=== PATIENT | male | born 1955 | race Caucasian/White ===

== ENCOUNTER → 2023-06-16 | Outpatient (CLI) | payer MEDICARE ==
[2023-06-16 10:06] LABS: African American GFR (CKD) >90 (>60 ml/min/1.73 sqM); Blood Urea Nitrogen 22 mg/dL (9-20); Non-African American GFR(CKD) 89 (>60 ml/min/1.73 sqM)
--- NOTE | 2023-06-16 11:34 | CT ---
EXAMINATION: CTA ABDOMEN AND PELVIS WITH IV CONTRAST DATE OF EXAMINATION: 06/16/2023. COMPARISON: None available. INDICATION: Abdominal aortic aneurysm follow-up. PROCEDURE: Axial CTA of the abdomen and pelvis was performed following the intravenous administratio n of 100 ml Isovue 300. Coronal and sagittal reformats were performed. CT dose lowering techniques w ere used, to include: automated exposure control, adjustment for patient size, and/or use of iterativ e reconstruction. Maximum intensity projection and 3-D reformats were performed. FINDINGS: Lung Bases: The visualized lung bases are clear. ABDOMEN: Liver and Biliary system: Normal. Adrenal glands: Normal. Kidneys and ureters: Normal. Spleen: Normal. Pancreas: Normal. Gallbladder: Normal. Lymph nodes, Peritoneum and mesentery: There is no mesenteric or retroperitoneal lymphadenopathy. Ely rgical clips are seen throughout the retroperitoneum. Gastrointestinal tract: There are no dilated loops of bowel or free intraperitoneal air. . The appe ndix is normal. Aorta/IVC: The abdominal aorta is normal in caliber without evidence of aneurysmal dilation or diss ection. There is some scattered atherosclerotic plaque otherwise noted.. IVC normal. Abdominal wall: Normal. PELVIS: Fluid: There is no free fluid in the pelvis. Lymph Nodes: There is no pelvic or inguinal lymphadenopathy.. Urinary bladder: Normal. BONES: There is fusion of the disc spaces at L4-5. There is severe degenerative disc space narrowing at L5-S1. There are no acute osseous abnormalities. ADDITIONAL SIGNIFICANT FINDINGS: None. IMPRESSION: 1. Surgical changes within the retroperitoneum with no evidence of abdominal aortic aneurysm or disse ction seen at this time. 2. No acute findings otherwise seen.
== END | disposition home or self-care (01) ==
LOC: RADCTMAIN 09:18
PROVIDERS: ATTEND Internal Medicine Interventional Cardiology
DX: I71.40 Abdominal aortic aneurysm, without rupture, unspecified (principal)
CPT/HCPCS: 82565; 84520; 36415; 74174; Q9967